=== PATIENT | male | born 1955 | race Caucasian/White ===

== ENCOUNTER 2021-11-13 08:57 | Day surgery (SDC) | payer BC ==
[2021-11-07 11:36] VITALS: BMI 31.4
[~2021-11-13 08:57] MED LIST: LACTATED RINGERS 1,000 ML IV SCH
[2021-11-13] MEDS ORDERED: LIDOCAINE 1% (10MG/ML) FOR IV START INTRADERMA ONE (09:30)
[2021-11-13 09:33] VITALS: TEMP 97.6
[2021-11-13] MEDS ORDERED: PROPOFOL 10 MG/ML 20 ML VIAL IV ONE (09:34)
[2021-11-13] MEDS ORDERED: LIDOCAINE 1% INJ 10MG/ML (20 ML MDV) ONE (09:34)
--- NOTE | 2021-11-13 09:40 | P.GSHP ---
History of Present Illness H&P Date: 11/13/21 Chief Complaint: Colon cancer screening 66-year-old male here today for screening colonoscopy. His last colonoscopy was 10 years ago or so. No bowel complaints. Patient with family history of colon cancer in his mother. Past Medical History Past Medical History: Hypertension History of Any Multi-Drug Resistant Organisms: None Reported Past Surgical History: Orthopedic Surgery, Tonsillectomy Additional Past Surgical History / Comment(s): ORIF RT ANKLE. COLONOSCOPY Past Anesthesia/Blood Transfusion Reactions: No Reported Reaction Smoking Status: Never smoker - Past Family History Mother Family Medical History: No Reported History Medications and Allergies Home Medications Medication Instructions Recorded Confirmed Type Benazepril [Lotensin] 10 mg PO DAILY 11/07/21 11/07/21 History amLODIPine [Norvasc] 5 mg PO DAILY 11/07/21 11/07/21 History Allergies Allergy/AdvReac Type Severity Reaction Status Date / Time No Known Allergies Allergy Verified 11/13/21 09:17 Surgical - Exam Vital Signs Temp Pulse Resp BP Pulse Ox 97.6 F 85 16 160/92 98 11/13/21 09:30 11/13/21 09:30 11/13/21 09:30 11/13/21 09:30 11/13/21 09:30 Physical exam: General: Well-developed, well-nourished HEENT: Normocephalic, sclerae nonicteric Abdomen: Nontender, nondistended Extremities: No edema Neuro: Alert and oriented Assessment and Plan (1) Colon cancer screening Narrative/Plan: Will proceed with colonoscopy at this time Current Visit: Yes Status: Acute Code(s): Z12.11 - ENCOUNTER FOR SCREENING FOR MALIGNANT NEOPLASM OF COLON SNOMED Code(s): 045322949
--- NOTE | 2021-11-13 09:56 | P.PCN ---
Date of Procedure: 11/13/21 Procedure(s) Performed: PREOPERATIVE DIAGNOSIS: Colon cancer screening, family history of colon cancer POSTOPERATIVE DIAGNOSIS: Normal exam PROCEDURE: Colonoscopy ANESTHESIA: MAC SURGEON: Jaimr Morales M.D. SPECIMENS: None ENDOSCOPIC PROCEDURE: The patient was placed on the endoscopy table in the left decubitus position. The Olympus colonoscope was inserted into the anus and passed under direct visualization to the base of the cecum. The appendiceal orifice was visualized. From that point the scope was slowly withdrawn inspecting all surfaces carefully. There were no neoplastic inflammatory or polypoid lesions throughout the cecum, ascending, transverse, descending, sigmoid and rectum. There was no visible diverticulosis noted. Digital rectal examination was normal. The patient was taken to the recovery room in stable condition per anesthesia guidelines. RECOMMENDATIONS: Resume diet. Follow-up colonoscopy 5 years.
[2021-11-13 10:29] VITALS: BP 132/76; PULSE 77; RESP 20
== END 2021-11-13 10:32 | disposition home or self-care (01) ==
LOC: ORWHC2ENDO 08:57
PROVIDERS: ATTEND Surgery
DX: Z12.11 Encounter for screening for malignant neoplasm of colon (principal); Z80.0 Family history of malignant neoplasm of digestive organs; I10 Essential (primary) hypertension; Z98.890 Other specified postprocedural states; Z79.899 Other long term (current) drug therapy
CPT/HCPCS: J2001; J2704; G0105